=== PATIENT | female | born 1980 | race Caucasian/White ===

== ENCOUNTER 2022-10-17 20:27 | Emergency (ER) | payer OTHER ==
[~2022-10-17] VITALS: Ht 154.9 cm; Wt 63.5 kg
[2022-10-17 20:42] VITALS: BP_SYST 132; PULSE 82; RESP 16; TEMP 98.4; O2SAT 97
--- NOTE | 2022-10-17 20:47 | NUR ---
Patient triaged and placed in waiting room. VSS and patient appears in no acute distress at this time. Accompanied by FAMILY, awaiting available bed, and MD notified of need for MSE.
[2022-10-17] MEDS ORDERED: MEDR10TA72 PO (21:17)
--- NOTE | 2022-10-17 21:44 | NUR ---
Patient given written and verbal discharge instructions and verbalizes understanding. ER MD discussed with patient the results and treatment provided. Patient in stable condition. ID arm band removed. Rx of PROVERA given. Patient educated on pain management and to follow up with PMD. Pain Scale 0/10. Opportunity for questions provided and answered. Medication side effect fact sheet provided.
== END 2022-10-17 21:44 | disposition home or self-care (01) ==
LOC: SED 20:27
DX: N93.9 Abnormal uterine and vaginal bleeding, unspecified (principal); Z79.899 Other long term (current) drug therapy
CPT/HCPCS: 99283

== ENCOUNTER 2022-11-05 22:29 | Emergency (ER) | payer OTHER ==
[~2022-11-05] VITALS: Ht 154.9 cm; Wt 68.0 kg
[~2022-11-05 22:29] MED LIST: MEDR10TA72 PO
[2022-11-05 22:35] VITALS: BP_SYST 120; PULSE 78; RESP 18; TEMP 98.4; O2SAT 99
--- NOTE | 2022-11-05 23:20 | NUR ---
patient brought in by self complaining of vaginal bleeding x 3 days reports having heavy menstraul periods but feels like this is heavier than normal. denies any pain. vss. NAD
--- NOTE | 2022-11-05 23:20 | NUR ---
Patient to ER bed 5 to gown for evaluation. Side rails up. Report given pari linn rn to .
--- NOTE | 2022-11-05 23:25 | NUR ---
ER at bedside examining patient.
[2022-11-05 23:44] LABS: BASOPHILS # (AUTO) 0.1 K/uL (0.0-0.2); BASOPHILS % (AUTO) 0.7 % (0.0-2.0); EOSINOPHILS # (AUTO) 0.1 K/uL (0.0-0.4); EOSINOPHILS % (AUTO) 1.7 % (0.0-4.0); HEMATOCRIT 26.2 % (36-48); HEMOGLOBIN 8.4 g/dL (12.0-16.0); LYMPHOCYTES # (AUTO) 1.8 K/uL (1.0-5.5); LYMPHOCYTES % (AUTO) 25.1 % (20.5-51.5); MEAN CORPUSCULAR HEMOGLOBIN 26 pg (27-31); MEAN CORPUSCULAR HGB CONC 32 % (32-36); MEAN CORPUSCULAR VOLUME 81 fL (79.0-98.0); MONOCYTES # (AUTO) 0.6 K/uL (0.0-1.0); MONOCYTES % (AUTO) 7.6 % (1.7-9.3); NEUTROPHILS # (AUTO) 4.7 K/uL (1.8-7.7); NEUTROPHILS % (AUTO) 64.9 % (40.0-70.0); PLATELET COUNT (AUTO) 311 K/uL (130-430); RED BLOOD CELL COUNT(AUTO) 3.22 MIL/uL (4.2-6.2); WHITE BLOOD COUNT (AUTO) 7.3 K/uL (4.8-10.8)
[2022-11-06 00:10] LABS: CALCIUM 8.2 mg/dL (8.4-11.0); CREATININE 0.48 mg/dL (0.55-1.30); PROTHROMBIN TIME 10.4 SECS (9.5-12.5)
[2022-11-06 00:33] LABS: BILIRUBIN,URINE NEGATIVE (NEGATIVE); BLOOD, URINE 3+ (NEGATIVE); CLARITY/URINE CLOUDY (CLEAR); GLUCOSE,URINE NEGATIVE (NEGATIVE); KETONES,URINE TRACE (NEGATIVE); PH,URINE 6.5 (5.0-8.0); PROTEIN URINE 3+ (NEGATIVE)
[2022-11-06] MEDS ORDERED: MEDR10TA72 PO ×3 (00:37→00:53)
[2022-11-06 00:38] LABS: COLOR,URINE RED (YELLOW)
[2022-11-06 00:41] LABS: LEUKOCYTE ESTERASE ,URINE NEGATIVE (NEGATIVE); NITRITE, URINE NEGATIVE (NEGATIVE)
[2022-11-06 00:44] LABS: BACTERIA,URINE None Seen /HPF (None Seen); RBC,URINE >100 /HPF (0-3); WBC,URINE 0-3 /HPF (0-3)
[2022-11-06] MEDS ORDERED: MEDROXYPROGESTERONE ACET IM ONE (00:45)
[2022-11-06 00:55] VITALS: BP_SYST 119; PULSE 79; RESP 15; TEMP 97.8; O2SAT 100
== END 2022-11-06 00:55 | disposition home or self-care (01) ==
LOC: SED 22:29
DX: N92.0 Excessive and frequent menstruation with regular cycle (principal); D50.9 Iron deficiency anemia, unspecified; Z79.899 Other long term (current) drug therapy
CPT/HCPCS: 36415; 80048; 81000; 81025; 85025; 85610-TC; 86886; 86900; 86901; 99283; J1050

== ENCOUNTER 2022-11-13 12:27 | Emergency (ER) | payer OTHER ==
[~2022-11-13] VITALS: Ht 152.4 cm; Wt 68.0 kg
[2022-11-13 12:41] VITALS: BP_SYST 116; PULSE 85; RESP 20; TEMP 98.3; O2SAT 98
[2022-11-13 13:48] LABS: BASOPHILS # (AUTO) 0.1 K/uL (0.0-0.2); BASOPHILS % (AUTO) 1.3 % (0.0-2.0); EOSINOPHILS # (AUTO) 0.1 K/uL (0.0-0.4); EOSINOPHILS % (AUTO) 1.1 % (0.0-4.0); HEMATOCRIT 23.9 % (36-48); HEMOGLOBIN 7.5 g/dL (12.0-16.0); LYMPHOCYTES # (AUTO) 1.9 K/uL (1.0-5.5); MEAN CORPUSCULAR HEMOGLOBIN 25 pg (27-31); MEAN CORPUSCULAR HGB CONC 32 % (32-36); MEAN CORPUSCULAR VOLUME 80 fL (79.0-98.0); MONOCYTES # (AUTO) 0.5 K/uL (0.0-1.0); MONOCYTES % (AUTO) 7.2 % (1.7-9.3); NEUTROPHILS # (AUTO) 4.1 K/uL (1.8-7.7); NEUTROPHILS % (AUTO) 61.4 % (40.0-70.0); PLATELET COUNT (AUTO) 272 K/uL (130-430); RED BLOOD CELL COUNT(AUTO) 2.99 MIL/uL (4.2-6.2); RED CELL DISTRIBUTION WIDTH 16.8 % (9.0-15.0); WHITE BLOOD COUNT (AUTO) 6.7 K/uL (4.8-10.8)
[2022-11-13 14:07] LABS: INR 1.1 (0.8-1.2)
[2022-11-13 14:13] LABS: CALCIUM 8.3 mg/dL (8.4-11.0); CREATININE 0.6 mg/dL (0.55-1.30); POTASSIUM 3.5 mmol/L (3.5-5.1)
[2022-11-13 14:17] LABS: ALBUMIN 3.6 g/dL (3.4-4.8); TOTAL BILIRUBIN 0.4 mg/dL (0.0-1.0); TOTAL PROTEIN, SERUM 6.8 g/dL (6.4-8.3)
[2022-11-13 14:55] VITALS: BP_SYST 116; PULSE 85; RESP 20; TEMP 98.3; O2SAT 98
== END 2022-11-13 14:52 | disposition home or self-care (01) ==
LOC: SED 12:27
DX: N93.8 Other specified abnormal uterine and vaginal bleeding (principal); D64.9 Anemia, unspecified; R53.1 Weakness; Z79.899 Other long term (current) drug therapy
CPT/HCPCS: 36415; 80053; 81025; 85025; 85610-TC; 85730-TC; 86900; 86901; 99283